=== PATIENT | female | born 1955 | race Caucasian/White ===

== ENCOUNTER → 2016-12-21 | Outpatient (CLI) | payer MEDICARE, MEDICAID ==
[~2016-12-21] MED LIST: ACET-62 PO; ALBU8TAB PO; BUME2TAB18 PO; CETI-269 PO; CYCL30DR LEFT EYE; DOCU-175 PO; FERR-67 PO; GABA-338 PO; HYDR-4246 PO; LEVE500T26 PO; LEVO50TA4 PO; LIDO700A18 TOP; LOPE-150 PO; MAG360OR92 PO; MAGN400O4 PO; MICO71PO TOP; NITR0.4T39 SL; OMEP-122 PO; ONDA-55 PO; POLY17PO6 PO; POTA10CA37 PO; RIVA20TA PO; SERT100T PO; SOTA80TA PO; [UNRECOGNIZED DRUG - CODE] PO; [UNRECOGNIZED DRUG - CODE] PO
[2016-12-21 11:19] LABS: ABSOLUTE RETICS # 0.2551 T/MM3 (0.0300-0.0900); HCT - HEMATOCRIT 36.4 % (36-46); HGB - HEMOGLOBIN 11.5 GM/DL (12-16); MEAN CORPUSCULAR HGB 31.3 UUG (26-34); MEAN CORPUSCULAR HGB CONC(MCHC 31.6 GM/DL (31-37); MEAN CORPUSCULAR VOLUME 99.2 UM3 (80-100); MEAN PLATELET VOLUME 11.3 UM3 (9.4-12.4); RED BLOOD COUNT 3.67 M/MM3 (4.00-5.20); RETICULOCYTE HGB 30.7 PG (30.8-36.6)
[2016-12-21 11:27] LABS: WBC - WHITE BLOOD COUNT 51.3 T/MM3 (4.5-11.0)
[2016-12-21 11:30] LABS: ALBUMIN 4.1 G/DL (3.5-5.0); ALBUMIN/GLOBULIN RATIO 1.1 RATIO (1.1-2.2); ALKALINE PHOSPHATASE 216 U/L (38-126); ALT (SGPT) 32 U/L (9-52); ANION GAP 13 MEQ/L (5-15); AST (SGOT) 36 U/L (14-36); BUN/CREATININE RATIO 27 RATIO (6-26); CALCIUM 9.2 MG/DL (8.4-10.2); CHLORIDE 107 MEQ/L (98-107); CO2 - CARBON DIOXIDE 28 MEQ/L (22-30); CREATININE 0.7 MG/DL (0.7-1.2); GLOMERULAR FILTRATION RATE 86; GLUCOSE 109 MG/DL (65-110); LDH 1922 U/L (313-618); MAGNESIUM 2.4 MG/DL (1.6-2.3); POTASSIUM 4.3 MEQ/L (3.6-5); SODIUM 148 MEQ/L (134-144); TOTAL PROTEIN 7.7 G/DL (6.3-8.2)
[2016-12-21 11:38] LABS: BAND NEUTROPHILS # 6.7 T/MM3; EOSINOPHILS # (MANUAL) 0.5 T/MM3 (0-0.5); IGA - IMMUNOGLOBULIN A 429.47 MG/DL (70-400); IGG - IMMUNOGLOBULIN G 974.45 MG/DL (700-1600); IGM - IMMUNOGLOBULIN M 157.46 MG/DL (40-230); LYMPHOCYTES # (MANUAL) 4.1 T/MM3 (1-4.8); METAMYELOCYTES # 4.6 T/MM3; MYELOCYTES # 3.1 T/MM3; NEUTROPHILS #(MANUAL)-ABSOLUTE 32.3 T/MM3 (1.8-7.7); NUCLEATED RED BLOOD CELLS 4; TOTAL CELLS COUNTED 100 %
[2016-12-21 11:39] LABS: ANISOCYTOSIS 2+
[2016-12-21 11:40] LABS: POIKILOCYTOSIS 1+; POLYCHROMASIA 1+; TEAR DROP CELLS 1+
[2016-12-21 12:02] LABS: CA 27-29 CALCULATED 40.74 U/ML (0-37.7)
[2016-12-22 02:11] LABS: TOTAL IRON BINDING CAPACITY 309 UG/DL (261-497)
[2016-12-22 02:47] LABS: IRON 92 UG/DL (37-170); IRON % SAT (TRANSF %SAT)(CALC) 30 % (9-55)
[2016-12-22 03:27] LABS: FERRITIN 123 NG/ML (11-264)
[2016-12-22 03:41] LABS: VITAMIN B12 - BATCH > 1000 PG/ML (239-931)
[2016-12-22 04:07] LABS: FOLATE > 20.0 NG/ML (2.76-20)
== END ==
LOC: LABN 11:09
PROVIDERS: ATTEND Internal Medicine Hematology & Oncology
DX: C50.812 Malignant neoplasm of overlapping sites of left female breast (principal); D64.4 Congenital dyserythropoietic anemia
CPT/HCPCS: 80053; 82378; 82607; 82668; 82728; 82746; 82784; 83010; 83090; 83540; 83550; 83615; 83735; 83883; 83921; 84155; 84165; 85025; 85045; 86300; 86334